=== PATIENT | female | born 1965 | race Caucasian/White ===

== ENCOUNTER → 2019-01-23 | Outpatient (CLI) | payer OTHER ==
[~2019-01-23] MED LIST: HYDACE5 PO
[2019-01-27 16:06] LABS: HPV 16 Negative (Negative); HPV 18 Negative (Negative); HPV OTHER HR TYPES Negative (Negative)
== END | disposition home or self-care (01) ==
LOC: LAB SHORT 15:45 → LAB 15:45
PROVIDERS: Nurse Practitioner Family
DX: Z12.4 Encounter for screening for malignant neoplasm of cervix (principal)
CPT/HCPCS: 87624; G0123

== ENCOUNTER 2022-12-22 19:14 | Emergency (ER) | payer OTHER ==
[~2022-12-22] VITALS: Ht 160 cm; Wt 90.7 kg
[2022-12-22 19:22] VITALS: BP 169/99
== END 2022-12-22 20:20 | disposition home or self-care (01) ==
LOC: ER 19:14
DX: S81.012A Laceration without foreign body, left knee, initial encounter (principal); Z23 Encounter for immunization; V29.99XA Rider (driver) (passenger) of other motorcycle injured in unspecified traffic accident, initial encounter
CPT/HCPCS: 90471; 90715; 99283-25

== ENCOUNTER → 2024-04-22 | Outpatient (CLI) | payer OTHER ==
[2024-04-29 18:10] LABS: HPV HIGH RISK BY TMA Not Detected; HPV SOURCE Cervical
== END ==
LOC: LAB SHORT 15:50 → LAB 15:50
PROVIDERS: Obstetrics & Gynecology
DX: Z01.419 Encounter for gynecological examination (general) (routine) without abnormal findings (principal)
CPT/HCPCS: 87624; G0123

== ENCOUNTER 2024-10-11 16:25 | Emergency (ER) | payer OTHER ==
[~2024-10-11] VITALS: Ht 160 cm; Wt 81.7 kg
[2024-10-11 16:38] VITALS: BP 137/88
== END 2024-10-11 16:47 | disposition home or self-care (01) ==
LOC: ER 16:25
DX: S20.01XA Contusion of right breast, initial encounter (principal); S20.312A Abrasion of left front wall of thorax, initial encounter; V89.2XXA Person injured in unspecified motor-vehicle accident, traffic, initial encounter
CPT/HCPCS: 99283